=== PATIENT | male | born 1955 | race Caucasian/White ===

== ENCOUNTER 2020-11-15 19:05 | Emergency (ER) | payer MEDICARE, OTHER ==
[2020-11-15] MEDS ORDERED: FLOMAX0.4 MG PO (19:21)
[2020-11-15] MEDS ORDERED: ST. JOSEPH ASPI81 MG PO (19:21)
[2020-11-15] MEDS ORDERED: CRESTOR20 MG PO (19:21)
[2020-11-15] MEDS ORDERED: ZYRTEC ALLERGY10 MG PO (19:21)
[2020-11-15 19:54] LABS: BASO # 0.05 (0.02-0.10); EOS # 0.12 (0.04-0.40); EOS % 1.5 % (0.0-4.0); HEMATOCRIT 40.3 % (42.0-52.0); HEMOGLOBIN 14.2 g/dL (13.5-18.0); LYMPH# 1.93 (1.50-4.00); MEAN CELL VOLUME 91 fl (78-100); MEAN CORPUSCULAR HEMOGLOBIN 32 pg (27-31); MEAN CORPUSCULAR HGB CONC 35 g/dL (33-37); MEAN PLATELET VOLUME 9.6 fl (7.4-10.4); MONO # 0.55 (0.20-0.80); NEU # 5.46 (1.40-6.50); PLATELET COUNT 210 K/mm3 (130-400); RED BLOOD COUNT 4.42 M/mm3 (4.20-5.60); RED CELL DISTRIBUTION WIDTH 11.7 % (11.5-14.5); WHITE BLOOD COUNT 8.1 K/mm3 (4.8-10.8)
[2020-11-15 20:22] LABS: ALBUMIN 4.7 g/dL (3.4-4.8); POTASSIUM 4.1 mmol/L (3.5-5.1); SODIUM 137 mmol/L (136-145)
[2020-11-15 20:23] LABS: CALCIUM 9.9 mg/dL (8.3-10.5)
[2020-11-15 20:24] LABS: GLUCOSE 96 mg/dL (75-110); TOTAL PROTEIN 7.5 g/dL (6.2-8.1)
[2020-11-15 20:25] LABS: CARBON DIOXIDE 26 mmol/L (23-31)
[2020-11-15 20:29] LABS: AST-SGOT 26 U/L (5-34)
[2020-11-15 20:31] LABS: ALT/SGPT 23 U/L (0-55)
[2020-11-15 20:37] LABS: TROPONIN-I < 0.03 ng/mL (<0.030)
[2020-11-15 20:43] LABS: PH-URINE 5.5 (5.0 - 8.0); URINE APPEARANCE CLEAR; URINE BILIRUBIN NEGATIVE (NEGATIVE); URINE BLOOD NEGATIVE (NEGATIVE); URINE COLOR YELLOW; URINE GLUCOSE NEGATIVE (NEGATIVE); URINE KETONE NEGATIVE (NEGATIVE); URINE LEUKOCYTE ESTERASE NEGATIVE (NEGATIVE); URINE NITRATE NEGATIVE (NEGATIVE); URINE PROTEIN(semi-quant) NEGATIVE (NEGATIVE); URINE UROBILINOGEN NORMAL (NORMAL); URINE WBC 0-1 /hpf (0-3)
[2020-11-15] MEDS ORDERED: RABEPRAZOLE SOD20 MG PO (20:55)
[2020-11-15 22:10] VITALS: BP 21/86
== END 2020-11-15 22:10 | disposition short-term general hospital (02) ==
LOC: ED 19:05
PROVIDERS: Nurse Practitioner Family
DX: R41.82 Altered mental status, unspecified (principal); R47.01 Aphasia; R51.9 Headache, unspecified; I44.1 Atrioventricular block, second degree; H47.9 Unspecified disorder of visual pathways; I11.0 Hypertensive heart disease with heart failure; I50.9 Heart failure, unspecified; E78.00 Pure hypercholesterolemia, unspecified; Z79.82 Long term (current) use of aspirin; Z79.899 Other long term (current) drug therapy
CPT/HCPCS: Q9967